=== PATIENT | male | born 1950 | race Hispanic/Latino ===

== ENCOUNTER 2018-05-09 15:52 | Observation (INO) | payer MEDICARE, OTHER ==
[~2018-05-09] VITALS: Ht 167.6 cm; Wt 52.2 kg
[2018-05-09 16:40] LABS: BASOPHILS % (AUTO) 1.3 % (0.0-5.0); HEMATOCRIT 45.7 % (42-54); LYMPHOCYTES % (AUTO) 42.3 % (21.0-51.0); MEAN CORPUSCULAR HEMOGLOBIN 35.1 pg (27.0-33.0); MEAN CORPUSCULAR HGB CONC 34.6 g/dL (32.0-36.0); MEAN CORPUSCULAR VOLUME 101.3 fL (79-99); MONOCYTES % (AUTO) 8.4 % (3.0-13.0); NUCLEATED RED BLOOD CELLS 0.1 % (0.0-0.19); PLATELET COUNT (AUTO) 223 K/uL (130-400); RED BLOOD CELL COUNT(AUTO) 4.52 MIL/uL (4.50-6.20); WHITE BLOOD COUNT (AUTO) 9.6 K/uL (4.8-10.8)
[2018-05-09] MEDS ORDERED: SODIUM CHLORIDE 0.9% 100 ML IV ONE (16:47)
[2018-05-09] MEDS ORDERED: CEFTRIAXONE SODIUM 1 GM ONE (16:47)
[2018-05-09 16:53] LABS: CREATININE 0.8 mg/dL (0.5-1.5); PARTIAL THROMBOPLASTIN TIME 30.7 SEC (26.3-35.5); POTASSIUM 3.6 mmol/L (3.5-5.1)
[2018-05-09 16:57] LABS: ALBUMIN 3.5 g/dL (3.5-5.0); BILIRUBIN,TOTAL 0.6 mg/dL (0.2-1.0); TOTAL PROTEIN, SERUM 7.7 g/dL (6.0-8.3)
[2018-05-09 17:01] LABS: APPEARANCE,URINE Clear (CLEAR); BILIRUBIN,URINE Negative (NEGATIVE); COLOR,URINE Yellow (YELLOW); GLUCOSE, URINE (UA) Negative (NEGATIVE); KETONES,URINE Negative (NEGATIVE); LEUKOCYTE ESTERASE ,URINE Negative (NEGATIVE); NITRATE,URINE Negative (NEGATIVE); OCCULT BLOOD,URINE Negative (NEGATIVE); PH,URINE 5.5 (5.0-8.0); PROTEIN,URINE Negative (NEGATIVE); UROBILINOGEN,URINE 0.2 mg/dL (0.2-1.0)
[2018-05-09 17:17] LABS: INR 0.9 (0.85-1.15); PROTHROMBIN TIME 9.5 SEC (9.6-11.6)
[2018-05-09] MEDS ORDERED: SILVER SULFADIAZINE CREAM 50 GM TP ONE (18:31)
[2018-05-09] MEDS ORDERED: LEVOFLOXACIN 750 MG/D5W 150 ML 150 ML ONE (18:31)
[2018-05-09] MEDS ORDERED: HYDROCODONE/ACETAMINOPHEN 5/325 MG TAB PO PRN ×2 (18:45)
[2018-05-09] MEDS ORDERED: ONDANSETRON HCL 4 MG/2 ML VIAL IVP PRN (18:45)
[2018-05-09] MEDS ORDERED: ACETAMINOPHEN 325 MG TAB PO PRN (18:45)
[2018-05-09] MEDS ORDERED: SILVER SULFADIAZINE CREAM 50 GM TP SCH (21:00)
[2018-05-09] MEDS: LEVOFLOXACIN 750 MG/D5W 150 ML 150 ML IV SCH (21:00)
[2018-05-09 21:10] VITALS: BP 133/76
[2018-05-10] VITALS (7 sets, daily range): BP systolic 117–136; BP diastolic 67–77
[2018-05-10 06:09] LABS: HEMATOCRIT 44.5 % (42-54); MEAN CORPUSCULAR HEMOGLOBIN 34.7 pg (27.0-33.0); MEAN CORPUSCULAR HGB CONC 34.2 g/dL (32.0-36.0); MEAN CORPUSCULAR VOLUME 101.4 fL (79-99); PLATELET COUNT (AUTO) 192 K/uL (130-400); RED BLOOD CELL COUNT(AUTO) 4.38 MIL/uL (4.50-6.20); RED CELL DISTRIBUTION WIDTH 13.2 % (11.0-15.5); WHITE BLOOD COUNT (AUTO) 7.2 K/uL (4.8-10.8)
[2018-05-10 06:24] LABS: HEMOGLOBIN A1C 5.4 % (4.0-6.0)
[2018-05-10 06:28] LABS: CREATININE 0.9 mg/dL (0.5-1.5); POTASSIUM 4.4 mmol/L (3.5-5.1)
[2018-05-10] MEDS ORDERED: PNEUMOCOCCAL VACCINE POLYVALENT 0.5 ML/VIAL [PPV] IM ONE (07:30)
[2018-05-10] MEDS: PANTOPRAZOLE SODIUM 40 MG TABLET.DR PO SCH (08:47)
[2018-05-10] MEDS: ENOXAPARIN SODIUM 40 MG/0.4 ML SYRINGE SQ SCH (09:00)
--- NOTE | 2018-05-10 14:06 | NUR ---
[facility] CONSULT PATIENT ASSESSED ORDERED: PATIENT PRESENTS WITH A CHEMICAL BURN TO LT FOOT; [facility] RECOMMENDATIONS SUBMITTED. Addendum: 05/10/18 at 1407 by DAVID GAN LVN LVN W Amended: Links added.
[2018-05-10] MEDS ORDERED: HONEY 1 APPL/ML TUBE TP ONE ×2 (16:00→17:15)
[2018-05-10] MEDS ORDERED: PNEUMOCOCCAL VACCINE POLYVALENT 0.5 ML/VIAL [PPV] ONE (21:12)
[2018-05-10] MEDS: LEVOFLOXACIN 750 MG/D5W 150 ML 150 ML IV SCH (21:15)
[2018-05-11 03:00] VITALS: BP 137/74
[2018-05-11 08:00] VITALS: BP 119/61
[2018-05-11] MEDS ORDERED: HONEY 1 APPL/ML TUBE TP SCH (09:00)
[2018-05-11] MEDS: PANTOPRAZOLE SODIUM 40 MG TABLET.DR PO SCH (09:46)
[2018-05-11] MEDS: ENOXAPARIN SODIUM 40 MG/0.4 ML SYRINGE SQ SCH (09:46)
[2018-05-11 12:08] VITALS: BP 127/74
--- NOTE | 2018-05-11 14:04 | NUR ---
D/C PLAN UPDATE This publicity writer spoke with Dr. Javed via phone and given result of left foot X-Ray, Tello stated from his standpoint pt is okay to discharge but he will like Dr. Jesus to assess and also make his recommendation. pt currently pending to see Dr. Jesus at this point.
--- NOTE | 2018-05-11 14:35 | NUR ---
DCP CM met with pt discussed dc plans. Pt is independent prior to admission, lives at home with spouse. Denies any equipments/services. Pt feels safe to go back home, spouse and daughter able to assist with transportation and needs as necessary. DC plan to home once stable. CM to cont to follow up. Addendum: 05/11/18 at 1436 by JANESSA GORE LVN CM Amended: Links added.
[2018-05-11 16:00] VITALS: BP 166/83
[2018-05-11] MEDS ORDERED: LEVO500T2 PO (17:26)
[2018-05-11] MEDS ORDERED: TRAM-355 PO (17:26)
[2018-05-11 20:00] VITALS: BP 167/98
--- NOTE | 2018-05-11 20:30 | NUR ---
Prescriptions called into the [facility] pharmacy on [address]. Discharge paperwork given and explained to patient, he verbalizes understanding. Wheeled downstairs by MAXIMILIAN
== END 2018-05-11 20:35 | disposition home or self-care (01) ==
LOC: EDH 15:52 → EDHIP 18:00 → 3CH 21:02
PROVIDERS: ADMIT Internal Medicine Critical Care Medicine; ATTEND Internal Medicine Critical Care Medicine
DX: T25.622A Corrosion of second degree of left foot, initial encounter (principal); T25.621A Corrosion of second degree of right foot, initial encounter; G40.909 Epilepsy, unspecified, not intractable, without status epilepticus; E11.9 Type 2 diabetes mellitus without complications; L03.116 Cellulitis of left lower limb; G47.33 Obstructive sleep apnea (adult) (pediatric); A41.9 Sepsis, unspecified organism; I10 Essential (primary) hypertension; I82.402 Acute embolism and thrombosis of unspecified deep veins of left lower extremity; J69.0 Pneumonitis due to inhalation of food and vomit; K56.609 Unspecified intestinal obstruction, unspecified as to partial versus complete obstruction; F17.210 Nicotine dependence, cigarettes, uncomplicated; Y93.89 Activity, other specified; Y92.89 Other specified places as the place of occurrence of the external cause; Y99.8 Other external cause status; Z79.01 Long term (current) use of anticoagulants; Z23 Encounter for immunization
CPT/HCPCS: 36415 ×2; 71045; 73630; 80048; 80053; 81003; 83036; 85025; 85027; 85610; 85730; 87040 ×2; 90732; 93005; 96365; 96372; 99284; G0009; G0378 ×51; J0696; J1650; J1956 ×2

== ENCOUNTER → 2020-06-04 | Outpatient (CLI) | payer OTHER ==
[~2020-06-04] MED LIST: LEVO500T2 PO; TRAM-355 PO
== END | disposition home or self-care (01) ==
LOC: RAH 10:00
PROVIDERS: ATTEND Internal Medicine
DX: R22.1 Localized swelling, mass and lump, neck (principal)
CPT/HCPCS: 76536

== ENCOUNTER → 2020-06-11 | Outpatient (CLI) | payer OTHER ==
[2020-06-11 13:12] LABS: CREATININE 0.9 mg/dL (0.5-1.5)
== END | disposition home or self-care (01) ==
LOC: LAB 12:20
PROVIDERS: ATTEND Internal Medicine
DX: R93.89 Abnormal findings on diagnostic imaging of other specified body structures (principal); R59.0 Localized enlarged lymph nodes
CPT/HCPCS: 36415; 82565; 84520

== ENCOUNTER → 2020-06-15 | Outpatient (CLI) | payer OTHER ==
[~2020-06-15] MED LIST changes: +IOHEXOL-350 50ML VIAL IV ONE
== END | disposition home or self-care (01) ==
LOC: RAH 13:11
PROVIDERS: ATTEND Internal Medicine
DX: M79.89 Other specified soft tissue disorders (principal); R93.89 Abnormal findings on diagnostic imaging of other specified body structures; J44.9 Chronic obstructive pulmonary disease, unspecified; R59.0 Localized enlarged lymph nodes; M47.812 Spondylosis without myelopathy or radiculopathy, cervical region; M47.819 Spondylosis without myelopathy or radiculopathy, site unspecified
CPT/HCPCS: 70492; Q9967

== ENCOUNTER 2020-12-06 10:04 | Day surgery (SDC) | payer OTHER ==
[2020-12-04 14:15] LABS: BASOPHILS % (AUTO) 0.2 % (0.0-5.0); EOSINOPHILS % (AUTO) 1.1 % (0.0-8.0); HEMATOCRIT 36.3 % (42-54); LYMPHOCYTES % (AUTO) 46.4 % (21.0-51.0); MEAN CORPUSCULAR HEMOGLOBIN 31.2 pg (27.0-33.0); MEAN CORPUSCULAR HGB CONC 31.4 g/dL (32.0-36.0); MEAN CORPUSCULAR VOLUME 99.5 fL (79-99); MONOCYTES % (AUTO) 7.4 % (3.0-13.0); NEUTROPHILS % (AUTO) 44.7 % (40.0-77.0); PLATELET COUNT (AUTO) 279 K/uL (130-400); RED BLOOD CELL COUNT(AUTO) 3.65 MIL/uL (4.50-6.20); RED CELL DISTRIBUTION WIDTH 13.8 % (11.0-15.5); WHITE BLOOD COUNT (AUTO) 9.5 K/uL (4.8-10.8)
[2020-12-04 14:17] LABS: CREATININE 0.8 mg/dL (0.5-1.5); POTASSIUM 4.6 mmol/L (3.5-5.1)
[2020-12-04 14:18] LABS: PROTHROMBIN TIME 10.9 SEC (9.6-11.6)
[2020-12-04 14:19] LABS: PARTIAL THROMBOPLASTIN TIME 27.6 SEC (26.3-35.5)
[2020-12-05 09:03] VITALS: BP 148/79
[2020-12-06] VITALS (13 sets, daily range): BP systolic 117–139; BP diastolic 44–63
[~2020-12-06] VITALS: Ht 167.6 cm; Wt 44.1 kg
[~2020-12-06 10:04] MED LIST changes: -IOHEXOL-350 50ML VIAL IV ONE; -LEVO500T2 PO; +OXYC-26 PO; +QUET25TA36 PO; -TRAM-355 PO
[2020-12-06] MEDS: LIDOCAINE 1%-EPI 1:100,000 20 ML VIAL IJ SCH ×2 (10:30→12:27)
[2020-12-06] MEDS ORDERED: CEFAZOLIN SODIUM 1 GM VIAL ONE (10:39)
[2020-12-06] MEDS ORDERED: LACTATED RINGERS 1000ML 1,000 ML IV ONE (10:39)
[2020-12-06] MEDS: CEFAZOLIN SODIUM 1 GM VIAL IVP ONE ×2 (11:09→12:15)
[2020-12-06] MEDS ORDERED: LIDOCAINE PF 100MG/5ML (2%) SYRINGE 5ML ONE (12:01)
[2020-12-06] MEDS ORDERED: DEXAMETHASONE SOD PHOSPHATE 10MG/ML 1ML VIAL ONE (12:01)
[2020-12-06] MEDS ORDERED: SUCCINYLCHOLINE CHLORIDE 20 MG/ML 10 ML VIAL ONE (12:01)
[2020-12-06] MEDS ORDERED: ROCURONIUM 10MG/1ML SYR 10 MG/ML ML ONE (12:02)
[2020-12-06] MEDS ORDERED: PROPOFOL 10 MG/ML 20ML VIAL IV ONE (12:02)
[2020-12-06] MEDS ORDERED: NEOSTIGMINE 5MG/5ML SYR IV ONE (12:02)
[2020-12-06] MEDS ORDERED: MIDAZOLAM HCL 1 MG/ML 2ML VIAL ONE (12:02)
[2020-12-06] MEDS ORDERED: GLYCOPYRROLATE 1 MG/5 ML SYRINGE ONE (12:02)
[2020-12-06] MEDS ORDERED: ONDANSETRON 4MG INJ ONE (12:02)
[2020-12-06] MEDS ORDERED: FENTANYL CITRATE PF 50 MCG/1 ML 2ML VIAL ONE ×2 (12:03→12:59)
[2020-12-06] MEDS ORDERED: NALOXONE HCL 0.4 MG/1 ML ML ONE (13:34)
== END 2020-12-06 15:45 | disposition home or self-care (01) ==
LOC: DAH 10:04 → MERGE 11:00 → DAH 15:45
PROVIDERS: ATTEND Otolaryngology Plastic Surgery within the Head & Neck
DX: Z47.2 Encounter for removal of internal fixation device (principal); Z20.822 Contact with and (suspected) exposure to COVID-19; K13.29 Other disturbances of oral epithelium, including tongue; I10 Essential (primary) hypertension; F17.200 Nicotine dependence, unspecified, uncomplicated; Z79.01 Long term (current) use of anticoagulants; Z98.890 Other specified postprocedural states; Z85.819 Personal history of malignant neoplasm of unspecified site of lip, oral cavity, and pharynx
CPT/HCPCS: 20680; 36415; 71045; 80048; 85025; 85610; 85730; 87635; 93005; A4215; A4221; A4222; A4223; A4606; A4663; A6223; C9803; J0330; J0690; J1100; J2001; J2250; J2310; J2405; J2704; J2710; J3010 ×2; J3490 ×2; J7120

== ENCOUNTER 2021-09-05 20:37 | Emergency (ER) | payer OTHER ==
[~2021-09-05] VITALS: Ht 165.1 cm; Wt 45.4 kg
[2021-09-05] MEDS ORDERED: DIATR MEGLU/DIATRIZOATE SODIUM 30 ML BOTTLE ONE (22:22)
[2021-09-05 23:09] VITALS: BP 118/70
== END 2021-09-05 23:18 | disposition home or self-care (01) ==
LOC: EDH 20:37
DX: K94.23 Gastrostomy malfunction (principal); Z98.890 Other specified postprocedural states
CPT/HCPCS: 43762; 74018; 99284; Q9963

== ENCOUNTER 2022-03-06 09:20 | Observation (INO) | payer OTHER ==
[~2022-03-06] VITALS: Ht 157.5 cm; Wt 34.7 kg
[2022-03-06 10:40] LABS: BASOPHILS % (AUTO) 0.2 % (0.0-5.0); EOSINOPHILS % (AUTO) 0.4 % (0.0-8.0); HEMATOCRIT 32.5 % (42-54); LYMPHOCYTES % (AUTO) 7.9 % (21.0-51.0); MEAN CORPUSCULAR HEMOGLOBIN 31.2 pg (27.0-33.0); MEAN CORPUSCULAR VOLUME 97.6 fL (79-99); MONOCYTES % (AUTO) 7.4 % (3.0-13.0); NEUTROPHILS % (AUTO) 83.9 % (40.0-77.0); PLATELET COUNT (AUTO) 379 K/uL (130-400); RED BLOOD CELL COUNT(AUTO) 3.33 MIL/uL (4.50-6.20); RED CELL DISTRIBUTION WIDTH 13.9 % (11.0-15.5); WHITE BLOOD COUNT (AUTO) 9.6 K/uL (4.8-10.8)
[2022-03-06 10:55] LABS: ALBUMIN 2.5 g/dL (3.5-5.0); MAGNESIUM 1.9 mg/dL (1.80-2.40); POTASSIUM 4.6 mmol/L (3.5-5.1); TOTAL PROTEIN, SERUM 7.7 g/dL (6.0-8.3)
[2022-03-06] MEDS ORDERED: 0.9%NACL 1000ML 1,000 ML IV SCH (11:30)
[2022-03-06] MEDS ORDERED: IOHEXOL-350 50ML VIAL IV ONE (13:53)
[2022-03-06] MEDS ORDERED: POTASSIUM CHLORIDE 10% ELIXIR 20 MEQ/15 ML UDCUP PO PRN (15:30)
[2022-03-06] MEDS ORDERED: KCL 20 MEQ ERTAB PO PRN (15:30)
[2022-03-06] MEDS ORDERED: ACETAMINOPHEN 325 MG TAB PO PRN (15:30)
[2022-03-06] MEDS ORDERED: GLUCAGON 1MG KIT 1 MG ML IM PRN (15:30)
[2022-03-06] MEDS ORDERED: CLONIDINE HCL 0.1 MG TABLET PO PRN (15:30)
[2022-03-06] MEDS ORDERED: HYDRALAZINE 20MG/ML VIAL IV PRN (15:30)
[2022-03-06] MEDS ORDERED: ACETAMINOPHEN 650 MG SUPPOSITORY RC PRN (15:30)
[2022-03-06] MEDS ORDERED: LACTULOSE 20 GM/30 ML UDCUP PO PRN (15:30)
[2022-03-06] MEDS ORDERED: POTASSIUM CHLORIDE 20MEQ/100ML 100 ML IV PRN ×2 (15:30)
[2022-03-06] MEDS ORDERED: MAGNESIUM 2GM PREMIX 50ML 50 ML IV PRN (15:30)
[2022-03-06] MEDS ORDERED: ONDANSETRON 4MG INJ IVP PRN (15:30)
[2022-03-06] MEDS ORDERED: LIDOCAINE HCL-MPF 1% 2ML VIAL IV PRN ×2 (15:30)
[2022-03-06 15:50] LABS: APPEARANCE,URINE CLOUDY (CLEAR); BILIRUBIN,URINE NEGATIVE (NEGATIVE); COLOR,URINE LIGHT-YELLOW (YELLOW); GLUCOSE, URINE (UA) NEGATIVE (NEGATIVE); KETONES,URINE NEGATIVE (NEGATIVE); LEUKOCYTE ESTERASE ,URINE NEGATIVE Leu/uL (NEGATIVE); NITRATE,URINE NEGATIVE (NEGATIVE); OCCULT BLOOD,URINE NEGATIVE (NEGATIVE); PH,URINE 7.5 (5.0-8.0); PROTEIN,URINE NEGATIVE (NEGATIVE); UROBILINOGEN,URINE 0.2 mg/dL (0.2-1.0)
[2022-03-06 15:52] LABS: ABG BASE EXCESS 2.6 mmol/L (-2.0-3.0); ABG HCO3 26.9 mmol/L (21.0-28.0); ABG PCO2 40 mmHg (35-48)
[2022-03-06] MEDS: LACTATED RINGERS 1000ML 1,000 ML IV SCH (16:18)
[2022-03-06] MEDS: DEXAMETHASONE SOD PHOSPHATE 10MG/ML 1ML VIAL IVP SCH (16:18)
[2022-03-06] MEDS: DOXYCYCLINE 100MG+NS 250ML IV SCH (16:18)
[2022-03-06] MEDS: INSULIN HUMULIN R 100 UNIT/ML 3ML SQ SCH ×2 (16:30→21:00)
[2022-03-06] MEDS: DEXTROSE 50%-WATER 50 ML DISP.SYRIN IV PRN (16:53)
[2022-03-06] MEDS: FAMOTIDINE 20MG TAB PO SCH (21:10)
[2022-03-07 03:03] VITALS: BP 109/69
[2022-03-07] MEDS: DEXAMETHASONE SOD PHOSPHATE 10MG/ML 1ML VIAL IVP SCH (03:30)
[2022-03-07 03:58] LABS: BASOPHILS % (AUTO) 0.2 % (0.0-5.0); HEMATOCRIT 30.4 % (42-54); LYMPHOCYTES % (AUTO) 17.1 % (21.0-51.0); MEAN CORPUSCULAR HEMOGLOBIN 31.5 pg (27.0-33.0); MEAN CORPUSCULAR HGB CONC 33.2 g/dL (32.0-36.0); MEAN CORPUSCULAR VOLUME 94.7 fL (79-99); MONOCYTES % (AUTO) 3.3 % (3.0-13.0); NEUTROPHILS % (AUTO) 79.2 % (40.0-77.0); PLATELET COUNT (AUTO) 374 K/uL (130-400); RED BLOOD CELL COUNT(AUTO) 3.21 MIL/uL (4.50-6.20); RED CELL DISTRIBUTION WIDTH 13.8 % (11.0-15.5); WHITE BLOOD COUNT (AUTO) 4.9 K/uL (4.8-10.8)
[2022-03-07] MEDS: DOXYCYCLINE 100MG+NS 250ML IV SCH ×2 (04:03→16:36)
[2022-03-07 04:15] LABS: CREATININE 0.8 mg/dL (0.5-1.5); MAGNESIUM 5.3 mg/dL (1.80-2.40); POTASSIUM 4.3 mmol/L (3.5-5.1)
[2022-03-07] MEDS: LACTATED RINGERS 1000ML 1,000 ML IV SCH (05:25)
[2022-03-07] MEDS: INSULIN HUMULIN R 100 UNIT/ML 3ML SQ SCH ×3 (05:59→15:56)
[2022-03-07 07:54] VITALS: BP 117/59
[2022-03-07] MEDS: FAMOTIDINE 20MG TAB PO SCH (08:08)
[2022-03-07] MEDS ORDERED: FERROUS SULFATE 325 MG TABLET.DR PO SCH (09:00)
[2022-03-07] MEDS ORDERED: FOLIC ACID 1 MG TABLET PO SCH (09:00)
[2022-03-07] MEDS ORDERED: POLYETHYLENE GLYCOL 3350 17 GM POWD.PACK PO SCH (09:00)
[2022-03-07] MEDS ORDERED: THIAMINE HCL 100 MG TABLET PO SCH (09:00)
[2022-03-07] MEDS ORDERED: ASCORBIC ACID 500 MG TAB PO SCH (09:00)
[2022-03-07 11:06] VITALS: BP 103/56
[2022-03-07] MEDS: DEXTROSE 50%-WATER 50 ML DISP.SYRIN IV PRN (11:06)
[2022-03-07 15:40] VITALS: BP 128/66
[2022-03-07] MEDS ORDERED: BACT5L PEG (17:11)
[2022-03-07] MEDS ORDERED: MELO5CAP3 PO (17:11)
[2022-03-07] MEDS ORDERED: DOXY100C5 PO (17:22)
[2022-03-07] MEDS ORDERED: PRED20TA3 PO (17:22)
== END 2022-03-07 18:35 | disposition home or self-care (01) ==
LOC: EDH 09:20 → EDHIP 15:13 → 2AH 03-07 01:04
PROVIDERS: ADMIT Internal Medicine Critical Care Medicine; ATTEND Internal Medicine Critical Care Medicine
DX: C76.0 Malignant neoplasm of head, face and neck (principal); T81.89XA Other complications of procedures, not elsewhere classified, initial encounter; E87.29 Other acidosis; Z66 Do not resuscitate; Z85.819 Personal history of malignant neoplasm of unspecified site of lip, oral cavity, and pharynx; Z85.828 Personal history of other malignant neoplasm of skin; Z87.891 Personal history of nicotine dependence; Z93.1 Gastrostomy status; Z79.899 Other long term (current) drug therapy
CPT/HCPCS: 96361; 96365; 96366 ×2; 96375 ×2; 99285; 82435; 82947; 83735 ×4; 84132; 84295; 80053; 82803; 85025 ×2; 85018; 87088; 82948 ×6; 83605; 81001; 36415 ×2; 71045; 70491; 36600; 84145; 96376; 96367; 84100; 80048; 97161; 97530; G0378 ×27; J7120; J1100 ×2; J7070 ×2; J3490 ×3; Q9967; J3475

== ENCOUNTER 2022-09-05 07:59 | Emergency (ER) | payer OTHER ==
[~2022-09-05] VITALS: Ht 162.6 cm; Wt 40.4 kg
[~2022-09-05 07:59] MED LIST changes: +DOXY100C5 PO; +MELO5CAP3 PO; +PRED20TA3 PO; -QUET25TA36 PO
[2022-09-05 08:01] VITALS: BP 142/73
[2022-09-05] MEDS ORDERED: DIATR MEGLU/DIATRIZOATE SODIUM 30 ML BOTTLE ONE (10:18)
== END 2022-09-05 11:44 | disposition home or self-care (01) ==
LOC: EDH 07:59
DX: K94.23 Gastrostomy malfunction (principal); Z79.1 Long term (current) use of non-steroidal anti-inflammatories (NSAID); Z79.52 Long term (current) use of systemic steroids; Z85.810 Personal history of malignant neoplasm of tongue
CPT/HCPCS: 99284; 74018; 43762; Q9963

== ENCOUNTER 2023-06-24 15:12 | Emergency (ER) | payer OTHER ==
[~2023-06-24] VITALS: Ht 165.1 cm; Wt 72.6 kg
[2023-06-24 15:19] VITALS: BP 114/62; PULSE 79; RESP 18; O2SAT 96
[2023-06-24] MEDS ORDERED: DEXAMETHASONE SOD PHOSPHATE 4 MG/ML 1ML VIAL IM STA (16:27)
[2023-06-24 16:29] LABS: BASOPHILS # (AUTO) 0.02 K/uL (0.00-0.20); BASOPHILS % (AUTO) 0.2 % (0.0-5.0); EOSINOPHILS # (AUTO) 0.09 K/uL (0.00-0.70); EOSINOPHILS % (AUTO) 0.8 % (0.0-8.0); HEMATOCRIT 26.6 % (42-54); IMMATURE GRANULOCYTE ABSOLUTE 0.04 K/uL (0-1); LYMPHOCYTES # (AUTO) 1.7 K/uL (1.0-4.8); MEAN CORPUSCULAR HEMOGLOBIN 28.2 pg (27.0-33.0); MEAN CORPUSCULAR HGB CONC 30.8 g/dL (32.0-36.0); MEAN CORPUSCULAR VOLUME 91.4 fL (79-99); MONOCYTES % (AUTO) 8.2 % (3.0-13.0); NEUTROPHILS # (AUTO) 9.2 K/uL (1.8-7.7); NEUTROPHILS % (AUTO) 76.5 % (40.0-77.0); PLATELET COUNT (AUTO) 634 K/uL (130-400); RED BLOOD CELL COUNT(AUTO) 2.91 MIL/uL (4.50-6.20); RED CELL DISTRIBUTION WIDTH 17.8 % (11.0-15.5)
[2023-06-24] MEDS ORDERED: DIATR MEGLU/DIATRIZOATE SODIUM 30 ML BOTTLE ONE (16:33)
[2023-06-24 16:36] LABS: CREATININE 0.8 mg/dL (0.5-1.3); POTASSIUM 4.6 mmol/L (3.5-5.1)
[2023-06-24 16:41] LABS: ALBUMIN 2.1 g/dL (3.5-5.0); BILIRUBIN,TOTAL 0.2 mg/dL (0.2-1.0); TOTAL PROTEIN, SERUM 6.5 g/dL (6.0-8.3)
[2023-06-24] MEDS ORDERED: CEFD250S3 PO (16:51)
== END 2023-06-24 17:58 | disposition home or self-care (01) ==
LOC: EDH 15:12
DX: K94.23 Gastrostomy malfunction (principal); E11.9 Type 2 diabetes mellitus without complications; E78.00 Pure hypercholesterolemia, unspecified; I10 Essential (primary) hypertension; Z79.1 Long term (current) use of non-steroidal anti-inflammatories (NSAID); Z79.52 Long term (current) use of systemic steroids; Z85.810 Personal history of malignant neoplasm of tongue
CPT/HCPCS: 99284; 43762; 80053; 85025; 36415; 74018; 96372; Q9963

== ENCOUNTER 2023-07-08 09:08 | Day surgery (SDC) | payer OTHER ==
[~2023-07-08] VITALS: Ht 162.6 cm; Wt 41.7 kg
[2023-07-08] VITALS (11 sets, daily range): BP systolic 105–134; BP diastolic 51–58; PULSE 60–71; RESP 15–20
[~2023-07-08 09:08] MED LIST changes: -DOXY100C5 PO; +LEVO25CA4 PO; +MELO-108 PO; -MELO5CAP3 PO; +ONDA-105 PO; -OXYC-26 PO; -PRED20TA3 PO
[2023-07-08] MEDS: 0.9%NACL 1000ML 1,000 ML IV ONE (10:19)
[2023-07-08] MEDS ORDERED: PROPOFOL 10 MG/ML 20ML VIAL IV ONE (11:23)
== END 2023-07-08 13:05 | disposition home or self-care (01) ==
LOC: ENDO 09:08 → DAH 09:08 → ENDO 13:05
PROVIDERS: ATTEND Internal Medicine Gastroenterology
DX: R13.12 Dysphagia, oropharyngeal phase (principal); K94.23 Gastrostomy malfunction; C06.9 Malignant neoplasm of mouth, unspecified; R93.3 Abnormal findings on diagnostic imaging of other parts of digestive tract; R11.2 Nausea with vomiting, unspecified; K21.00 Gastro-esophageal reflux disease with esophagitis, without bleeding; Z79.899 Other long term (current) drug therapy; Z79.890 Hormone replacement therapy
CPT/HCPCS: 43246; J7030 ×2; J2704; A4620; A4215 ×2; A4223; A7002; A4222; A4221; A4663; A4606; J3490

== ENCOUNTER 2023-09-02 12:02 | Day surgery (SDC) | payer OTHER ==
[2023-09-02] VITALS (12 sets, daily range): BP systolic 119–153; BP diastolic 54–104; PULSE 61–97; RESP 14–18
[~2023-09-02] VITALS: Ht 167.6 cm; Wt 49.9 kg
[2023-09-02] MEDS ORDERED: FERROUS SULFATE PO (12:54)
[2023-09-02] MEDS ORDERED: ESOM40SU2 PO (12:54)
[2023-09-02] MEDS ORDERED: PROPOFOL 10 MG/ML 20ML VIAL IV ONE (13:01)
== END 2023-09-02 14:25 | disposition home or self-care (01) ==
LOC: DAH 12:02 → ENDO 12:02
PROVIDERS: ATTEND Internal Medicine Gastroenterology
DX: R19.5 Other fecal abnormalities (principal); D50.9 Iron deficiency anemia, unspecified; K57.30 Diverticulosis of large intestine without perforation or abscess without bleeding; K64.0 First degree hemorrhoids; K21.00 Gastro-esophageal reflux disease with esophagitis, without bleeding; Z93.1 Gastrostomy status; Z79.899 Other long term (current) drug therapy
CPT/HCPCS: 45378; J2704; A4620; A4215 ×2; A4223; A4657; A4222; A4221; A4663; J7030; A4606; J3490

== ENCOUNTER → 2024-03-17 | Outpatient (CLI) | payer OTHER ==
[~2024-03-17] MED LIST changes: +ESOM40SU2 PO; +FERROUS SULFATE PO
== END | disposition home or self-care (01) ==
LOC: SHCH 11:41
PROVIDERS: ATTEND Internal Medicine Cardiovascular Disease
DX: R00.0 Tachycardia, unspecified (principal)
CPT/HCPCS: 93306

== ENCOUNTER 2024-08-02 09:01 | Day surgery (SDC) | payer OTHER ==
[~2024-08-02] VITALS: Ht 152.4 cm; Wt 51.3 kg
[2024-08-02] VITALS (10 sets, daily range): BP systolic 118–134; BP diastolic 47–55; PULSE 55–71; RESP 15–17; TEMP 97.1–97.6
[~2024-08-02 09:01] MED LIST changes: +ACET500P24 PEG; -ESOM40SU2 PO; +FERR220S5 PEG; -FERROUS SULFATE PO; -LEVO25CA4 PO; +LEVO25CA5 PEG; +MELA10TA20 PEG; -MELO-108 PO; +PANT40TA54 PEG
[2024-08-02] MEDS: 0.9%NACL 1000ML 1,000 ML IV ONE (10:13)
[2024-08-02] MEDS ORDERED: proPOFol 10 MG/ML 20ML VIAL IV ONE (10:45)
[2024-08-02] MEDS ORDERED: LIDOCAINE PF 100MG/5ML (2%) SYRINGE 5ML ONE (10:46)
== END 2024-08-02 12:13 | disposition home or self-care (01) ==
LOC: ENDO 09:01 → DAH 09:01 → ENDO 12:13
PROVIDERS: ATTEND Internal Medicine Gastroenterology
DX: K94.23 Gastrostomy malfunction (principal); K22.2 Esophageal obstruction; K21.00 Gastro-esophageal reflux disease with esophagitis, without bleeding; K80.20 Calculus of gallbladder without cholecystitis without obstruction; K57.30 Diverticulosis of large intestine without perforation or abscess without bleeding; K21.9 Gastro-esophageal reflux disease without esophagitis; K64.0 First degree hemorrhoids; K92.0 Hematemesis; K57.90 Diverticulosis of intestine, part unspecified, without perforation or abscess without bleeding; C06.9 Malignant neoplasm of mouth, unspecified; R62.7 Adult failure to thrive; Z68.20 Body mass index [BMI] 20.0-20.9, adult; Z86.2 Personal history of diseases of the blood and blood-forming organs and certain disorders involving the immune mechanism; Z79.899 Other long term (current) drug therapy; Z98.890 Other specified postprocedural states
CPT/HCPCS: 43246; J7030 ×2; J2003; J2704; A4620; A4215; A4223; A7002; A4222; A4221; A4663; A4606; J3490